=== PATIENT | female | born 1945 | race Caucasian/White ===

== ENCOUNTER 2017-01-21 09:00 | Emergency (ER) | payer MEDICARE, OTHER ==
--- NOTE | 2017-01-21 09:40 | EDM.PDOC ---
ED HPI GENERAL MEDICAL PROBLEM - General Chief Complaint: Neuro Symptoms/Deficits Stated Complaint: POSSIBLE STROKE Time Seen by Provider: 01/21/17 09:20 Source of Information: Reports: Patient, Family History Limitations: Reports: No Limitations - History of Present Illness INITIAL COMMENTS - FREE TEXT/NARRATIVE: Quyen comes to [facility] ED with a 10 day hx of some R facial drooping, biting her R cheek when chewing food, slurred speech, and concerns for a possible stroke. There is no headache, dizziness, lt headiness, visual disturbance, loss of coordination or impaired ambulation, or glenis weakness. She called her PCP this am who suggested a visit to the ED. She has not tried any meds. - Related Data Allergies Allergy/AdvReac Type Severity Reaction Status Date / Time No Known Allergies Allergy Verified 01/21/17 09:24 Home Meds: Home Meds Allopurinol [Zyloprim] 100 mg BID 01/21/17 [History] Calcium Polycarbophil [Fibercon] 625 mg PO DAILY 01/21/17 [History] Cetirizine [ZyrTEC] 10 mg PO DAILY 01/21/17 [History] Cholecalciferol (Vitamin D3) [Vitamin D3] 2,000 unit PO DAILY 01/21/17 [History] Cyanocobalamin (Vitamin B12) [Vitamin B13] 500 mcg PO DAILY 01/21/17 [History] Dexamethasone 2 mg PO Q8H #20 tab 01/21/17 [Rx] Indapamide 1.25 mg PO Q48H 01/21/17 [History] Potassium Chloride [Potassium Chloride] 10 meq DAILY 01/21/17 [History] Ranitidine [Zantac] 150 mg PO 1800 01/21/17 [History] Simvastatin [Zocor] 10 mg PO BEDTIME 01/21/17 [History] Past Medical History Cardiovascular History: Reports: High Cholesterol, Hypertension Gastrointestinal History: Reports: GERD Oncologic (Cancer) History: Reports: Lung ED ROS GENERAL - Review of Systems Review Of Systems: See Below Constitutional: Reports: No Symptoms HEENT: Reports: Other (R facial asymmetry, biting R cheek, slurred speech) Respiratory: Reports: No Symptoms Cardiovascular: Reports: Edema Endocrine: Reports: No Symptoms GI/Abdominal: Reports: No Symptoms : Reports: No Symptoms Musculoskeletal: Reports: No Symptoms Skin: Reports: No Symptoms Neurological: Reports: Trouble Speaking, Other (R facial asymmetry) Psychiatric: Reports: No Symptoms Hematologic/Lymphatic: Reports: No Symptoms Immunologic: Reports: No Symptoms ED EXAM, NEURO - Physical Exam Exam: See Below Exam Limited By: No Limitations General Appearance: Alert, WD/WN, No Apparent Distress, Anxious Eye Exam: Bilateral Eye: Normal Fundi, Normal Inspection, PERRL Ears: Normal External Exam Nose: Normal Inspection Throat/Mouth: Normal Inspection, Normal Teeth, Normal Gums, Normal Oropharynx, Normal Voice, Other (lengthening of R nasolabial fold) Head Exam: Other (lengthening of R nasolabial fold) Neck: Normal Inspection, Supple, Non-Tender, Full Range of Motion Respiratory/Chest: Lungs Clear, Normal Breath Sounds, Chest Non-Tender Cardiovascular: Normal Peripheral Pulses, Regular Rate, Rhythm, No Edema, No Murmur GI/Abdominal: Normal Bowel Sounds, Soft, Non-Tender, No Organomegaly, No Mass Neurological: Alert, Normal Mood/Affect, Normal Dorsiflexion, Normal Plantar Flexion, Normal Gait, Normal Reflexes, No Motor/Sensory Deficits, Oriented x 3, Other (R facial asymmetry with intact movement of R forehead and periorbital mm) Back Exam: Normal Inspection Extremities: Normal Inspection, Normal Range of Motion Psychiatric: Normal Affect, Anxious Skin Exam: Warm, Dry, Intact Course - Vital Signs Text/Narrative:: Subsequent studies included a screening noncontrast Head CT which noted a 16x20 mm lesion in the L frontoparietal area suspicious for a malignancy. A subsequent Brain MRI w contrast noted: Last Recorded V/S: Last Vital Signs Temp 36.7 C 01/21/17 09:03 Pulse 110 H 01/21/17 09:03 Resp 16 01/21/17 12:24 BP 161/81 H 01/21/17 12:24 Pulse Ox 100 01/21/17 12:24 - Orders/Labs/Meds Orders: Active Orders 24 hr Category Date Time Status Brain w wo Cont [MR] Stat Exams 01/21/17 10:01 Taken Chest 2V [CR] Stat Exams 01/21/17 10:01 Taken C Reactive Protein [C-REACTIVE PROTEIN] [CHEM] Stat Lab 01/21/17 09:38 Results COMPREHENSIVE METABOLIC PN,CMP [CHEM] Stat Lab 01/21/17 09:38 Results EKG 12 Lead [EK] Routine Ther 01/21/17 09:33 Ordered Labs: Laboratory Tests 01/21/17 01/21/17 01/21/17 Range/Units 09:38 09:38 09:38 WBC 5.4 (4.5-12.0) X10-3/uL RBC 4.29 (3.23-5.20) x10(6)uL Hgb 13.8 (11.5-15.5) g/dL Hct 39.6 (30.0-51.3) % MCV 92.2 (80-96) fL MCH 32.1 (27.7-33.6) pg MCHC 34.8 (32.2-35.4) g/dL RDW 12.9 (11.5-15.5) % Plt Count 189 (125-369) X10(3)uL MPV 7.9 (7.4-10.4) fL Neut % (Auto) 52.4 (46-82) % Lymph % (Auto) 34.7 (13-37) % Spencer % (Auto) 8.5 (4-12) % Eos % (Auto) 4 (1.0-5.0) % Baso % (Auto) 1 (0-2) % Neut # (Auto) 2.8 (1.6-8.3) # Lymph # (Auto) 1.9 (0.6-5.0) # Spencer # (Auto) 0.5 (0.0-1.3) # Eos # (Auto) 0.2 (0.0-0.8) # Baso # (Auto) 0.0 (0.0-0.2) # ESR 11 (0-20) mm/hr POC Sodium 141 (135-145) mmol/L POC Potassium 3.5 (3.5-5.3) mmol/L POC Chloride 105 (100-110) mmol/L POC Total CO2 22.0 L (23.0-30.0) mmol/L POC BUN 19 H (7-18) mg/dL POC Creatinine 0.8 (0.6-1.3) mg/dL Estimated GFR (MDRD) > 60 (>60) POC Glucose 134 H (80-116) mg/dL Meds: Medications Discontinued Medications Generic Name Dose Route Start Last Admin Trade Name Freq PRN Reason Stop Dose Admin Gadoteridol 20 ml 11/10/17 11:30 01/21/17 12:06 Prohance IV 19 ml . DIRECTED VARINDER Administration Departure - Departure Time of Disposition: 13:05 Disposition: Home, Self-Care 01 Condition: Fair Clinical Impression: Facial paralysis on right side, Brain malignancy - Discharge Information Prescriptions: Dexamethasone 2 mg PO Q8H #20 tab Referrals: Ehsan Morales MD [Primary Care Provider] - Forms: ED Department Discharge - Problem List & Annotations (1) Facial paralysis on right side SNOMED Code(s): 071148824 Code(s): G51.0 - [place]SY Status: Acute Current Visit: Yes Annotation/Comment:: R facial paralysis likely related to metastatis lesion in L frontoparietal area. I dispensed Dexamthasone 2 mg tid for brain swelling. She will follow up with Oncology in [facility]. (2) Brain malignancy SNOMED Code(s): 496854606 Code(s): C71.9 - MALIGNANT NEOPLASM OF BRAIN, UNSPECIFIED Status: Acute Current Visit: Yes Annotation/Comment:: MRI report of brain mets. Reports will be sent to Oncology in [place] on her behalf, including an appt for follow up next week. I dispensed Dexamethasone 2 mg tid for brain swelling to improve facial paralysis. - Problem List Review Problem List Initiated/Reviewed/Updated: Yes - My Orders Last 24 Hours: My Active Orders 01/21/17 09:33 EKG 12 Lead [EK] Routine 01/21/17 09:38 C Reactive Protein [C-REACTIVE PROTEIN] [CHEM] Stat COMPREHENSIVE METABOLIC PN,CMP [CHEM] Stat 01/21/17 10:01 Brain w wo Cont [MR] Stat Chest 2V [CR] Stat - Assessment/Plan Last 24 Hours: My Active Orders 01/21/17 09:33 EKG 12 Lead [EK] Routine 01/21/17 09:38 C Reactive Protein [C-REACTIVE PROTEIN] [CHEM] Stat COMPREHENSIVE METABOLIC PN,CMP [CHEM] Stat 01/21/17 10:01 Brain w wo Cont [MR] Stat Chest 2V [CR] Stat Plan: Follow up with Oncology-[facility] next week.
--- NOTE | 2017-01-21 10:35 | CT ---
INDICATION: Right facial droop, slurring of words, x10 days. No vision changes. CT HEAD WITHOUT CONTRAST: Serial contiguous 2.5 and 5-mm sections were obtained through the brain 01/21/2017. No previous studies were available. The patient also has a history of lung CA. Total Exam DLP = 949.36 mGy-cm. No shift of midline structures or ventricular abnormalities were identified. Tiny low-density abnormality in the left basal ganglia - external capsule - suggests lacunar infarct. Likewise, an even tinier low-density area is noted in the anterior limb of the internal capsule on the left, which could represent a tiny lacunar infarct also. In the left frontoparietal area, there is a 16 x 20 mm, somewhat rounded to oval shaped area of decreased density with some surrounding brain edema. The possibility of a metastatic deposit would be a consideration in this patient with history of lung CA. MRI is recommended for further evaluation without and with contrast. There are minimal calcifications in the internal carotid arteries. No other definite abnormal areas of density were identified. Paranasal sinuses and mastoid air cells appear to be well aerated. No definite cranial abnormality was identified. IMPRESSION: 1. Suspicious mass density in the left frontoparietal area, measuring a maximum of 20 mm. Metastatic deposit could be present versus a primary lesion. MRI is recommended for further evaluation. 2. Minimal lacunar infarcts on the left. 3. Minimal internal carotid artery calcifications. Report was given in person to Dr. Holguin at 0953 hours, 01/21/2017. [facility]
[2017-01-21] MEDS ORDERED: Gadoteridol 279.3 MG/ML 20 ML SDV IV SCH (11:30)
--- NOTE | 2017-01-21 13:25 | CR ---
INDICATION: History of adenocarcinoma of the lung. CHEST: PA and lateral views of the chest were obtained and compared with CT scan from 11/17/2016. An active infiltrate or effusion or definite recurrent neoplasm or metastatic disease process could not be identified. Findings compatible with COPD are noted. The aorta is calcified minimally in the arch area. Overlying snaps are noted. Slightly diminished bone density raises question of osteoporosis, which should be correlated clinically. IMPRESSION: No acute process. No definite evidence of metastatic disease. Report was given in person to Dr. Holguin at approximately 1225 hours, 01/21/2017. [facility]
== END 2017-01-21 13:21 | disposition home or self-care (01) ==
LOC: FB.ED 09:00
DX: G51.0 Bell's palsy (principal); C71.9 Malignant neoplasm of brain, unspecified; I10 Essential (primary) hypertension; Z79.899 Other long term (current) drug therapy
CPT/HCPCS: 36415; 70450; 70553; 71020; 80047; 80053; 85025; 85651; 86140; 93005; 93010; 99285

== ENCOUNTER 2018-10-09 11:11 | Inpatient (IN) | payer MEDICARE, OTHER ==
--- NOTE | 2018-10-09 11:55 | EDM.PDOC ---
ED HPI GENERAL MEDICAL PROBLEM - General Chief Complaint: General Stated Complaint: FALL Time Seen by Provider: 10/09/18 11:11 Source of Information: Reports: Patient, EMS, Family (Daughter) History Limitations: Reports: Altered Mental Status - History of Present Illness INITIAL COMMENTS - FREE TEXT/NARRATIVE: 72 y.o.w f with a H/O Lung CA Dx'd at age 68, was on RAD Tx was Dx'd last year with a metastatic brain mass left frontal lobe. Pt fell at 2 am, unable to get up. She was able to move herself, while on the floor, to the phone in order to call her daughter this am. Ip was independent till yesterday. Last time seen nl was yesterday 10/08/2018. Pt has a h/o word finding difficulties since her RAD Therapy. Pt is not able to move the right side of her body since her fall at 2 am. Pt is not on Coumadin. No Trauma to head. Mech of fall is not known at this time. Pt is a poor historian, HPI was given by her daughter. As per Daughter, pt is DNR/DNI. BP 128/78 RR 23 Pulse 102 Pulse xo 100% on Temp 35.6 Onset Date: 10/09/18 Onset Time: 02:00 Duration: Hour(s): Location: Reports: Head Quality: Reports: Dull Severity: Moderate Improves with: Reports: Rest Worsens with: Reports: Movement Context: Reports: Other (H/F) Associated Symptoms: Reports: Shortness of Breath, Weakness (right sided) - Related Data Allergies Allergy/AdvReac Type Severity Reaction Status Date / Time No Known Allergies Allergy Verified 10/09/18 11:40 Home Meds: Home Meds Allopurinol [Zyloprim] 200 mg PO DAILY 01/21/17 [History] Cetirizine [ZyrTEC] 10 mg PO DAILY 01/21/17 [History] Cholecalciferol (Vitamin D3) [Vitamin D3] 2,000 unit PO DAILY 01/21/17 [History] Cyanocobalamin (Vitamin B12) [Vitamin B12] 500 mcg PO DAILY 01/21/17 [History] Ranitidine [Zantac] 150 mg PO 1800 01/21/17 [History] Simvastatin [Zocor] 10 mg PO BEDTIME 01/21/17 [History] L Gasseri/B Bifidum/B Longum [[employer]ren[employer] Capsule] 1 tab PO DAILY [History] Wheat Dextrin [Benefiber] 4 gm PO DAILY cont 10/11/17 [Rx] amLODIPine [Norvasc] 2.5 mg PO DAILY 10/11/17 [History] Indapamide 1.25 mg PO Q48H 10/09/18 [History] Losartan [Cozaar] 50 mg PO DAILY 10/09/18 [History] Potassium Chloride 10 meq PO DAILY 10/09/18 [History] dexAMETHasone [Dexamethasone] 2 mg PO DAILY 10/09/18 [History] levETIRAcetam [Keppra] 1,000 mg PO BID 10/09/18 [History] Past Medical History HEENT History: Reports: Cataract Cardiovascular History: Reports: High Cholesterol, Hypertension Other Respiratory History: hx lung CA Gastrointestinal History: Reports: GERD Genitourinary History: Reports: Urinary Incontinence [employer] History: Reports: None, Musculoskeletal History: Reports: Arthritis, Gout Neurological History: Reports: Other (See Below) Other Neuro History: brain surgery 1 year ago Psychiatric History: Reports: Dementia Endocrine/Metabolic History: Reports: Obesity/BMI 30+, Vitamin D Deficiency Oncologic (Cancer) History: Reports: Lung - Infectious Disease History Infectious Disease History: Reports: Chicken Pox, Measles, Mumps - Past Surgical History Respiratory Surgical History: Reports: Other (See Below) Other Respiratory Surgeries/Procedures: L upper lobectomy for lung CA. GI Surgical History: Reports: Colonoscopy, EGD Endocrine Surgical History: Reports: None Oncologic Surgical History: Reports: Lobectomy Other Oncologic Surgeries/Procedures: L upper lobe lobectomy Social & Family History - Family History Family Medical History: Noncontributory - Caffeine Use Caffeine Use: Reports: Coffee Other Caffeine Use: 2 cups coffe daily and 12ounce soda daily ED ROS GENERAL - Review of Systems Review Of Systems: Unable To Obtain ED EXAM, GENERAL - Physical Exam Exam: See Below Exam Limited By: Altered Mental Status General Appearance: Alert, Mild Distress, Obese Eye Exam: Bilateral Eye: Normal Inspection Ears: Normal External Exam Ear Exam: Bilateral Ear: Auricle Normal Nose: Normal Inspection, Normal Mucosa, No Blood Throat/Mouth: Normal Inspection, Normal Lips, Normal Voice, No Airway Compromise Head: Atraumatic, Normocephalic Neck: Normal Inspection, Supple, Non-Tender, Full Range of Motion Respiratory/Chest: No Respiratory Distress, Rhonchi Cardiovascular: Normal Peripheral Pulses, Regular Rate, Rhythm, No Edema, No Gallop Peripheral Pulses: 2+: Radial (L) GI/Abdominal: Normal Bowel Sounds, Soft, Non-Tender, No Abnormal Bruit (Female) Exam: Deferred Rectal (Female) Exam: Deferred Back Exam: Normal Inspection, Full Range of Motion Extremities: No Pedal Edema, Normal Capillary Refill, Other (nl passive ROM rigt extremities) Neurological: Alert, Slow to Respond, Memory Loss Remote Events, Memory Loss Recent Events, Abnormal Gait (unable to ambulate due to right sided weakness), Sensory/Motor Deficit (falaccid r extremities) Psychiatric: Normal Affect, Normal Mood Skin Exam: Warm, Dry, Intact, Normal Color, No Rash Lymphatic: No Adenopathy EKG INTERPRETATION EKG Date: 10/09/18 Time: 12:55 Rhythm: NSR Rate (Beats/Min): 106 [place]: Normal P-Wave: Present QRS: Normal ST-T: Normal QT: Normal Comparison: NA - No Prior EKG Course - Vital Signs Text/Narrative:: 72 y.o.w f with a H/O Lung CA Dx'd at age 68, was on RAD Tx was Dx'd last year with a metastatic brain mass left frontal lobe. Pt fell at 2 am, unable to get up. She was able to move herself, while on the floor, to the phone in order to call her daughter this am. Ip was independent till yesterday. Last time seen nl was yesterday 10/08/2018. Pt has a h/o word finding difficulties since her RAD Therapy. Pt is not able to move the right side of her body since her fall at 2 am. Pt is not on Coumadin. No Trauma to head. Mech of fall is not known at this time. Pt is a poor historian, HPI was given by her daughter. As per Daughter, pt is DNR/DNI. BP 128/78 RR 23 Pulse 102 Pulse xo 100% on Temp 35.6 PE: Morbid obese w f with metastatic Brain CA, right sided weakness. Imaging: CT head 3 cm mass left fore head, official report is pending< CT neck and CT Chest are pending Labs: UA po for UTI, Lacticacid 1.6 MCV 102 K 2.9 Impression: Hypokalemia, Right Hemiparesis, H/O Lung CA with metastasis to brain, UTI, DNR/DNI Tx: Potassium, NS Levofloxacin Reexam: Pt was stable in the ED 11.45am Consultation: Dr. Domingo, Hospitalist: Accepted pt for admission. Polan: Admit to [facility] Last Recorded V/S: Last Vital Signs Temp 37.1 C 10/09/18 15:02 Pulse 99 10/09/18 15:02 Resp 24 H 10/09/18 15:02 BP 160/80 H 10/09/18 15:02 Pulse Ox 94 L 10/09/18 15:02 - Orders/Labs/Meds Orders: Active Orders 24 hr Category Date Time Status Patient Status [ADT] Routine ADT 10/09/18 14:17 Active Cardiac Monitoring [RC] INTERMITTENT Care 10/09/18 14:19 Inactive EKG Documentation Completion [RC] ASDIRECTED Care 10/09/18 12:40 Active Lennon Catheter Insertion [Insert Urinary Catheter] [OM. Care 10/09/18 14:00 Ordered PC] Q24H Lennon Catheter Insertion [Insert Urinary Catheter] [OM. Care 10/09/18 14:00 Ordered PC] Q24H Oxygen Therapy [RC] PRN Care 10/09/18 14:17 Active RT Aerosol Therapy [RC] ASDIRECTED Care 10/09/18 13:37 Active Up With Assistance [RC] ASDIRECTED Care 10/09/18 14:16 Active Urinary Catheter Assessment [RC] QSHIFT Care 10/09/18 13:53 Active Urinary Catheter Assessment [RC] QSHIFT Care 10/09/18 13:55 Inactive VTE/DVT Education [RC] Per Unit Routine Care 10/09/18 14:17 Active Vital Signs [RC] Q4H Care 10/09/18 14:17 Active Cervical Spine wo Cont [CT] Stat Exams 10/09/18 11:31 Taken Chest wo Cont [CT] Stat Exams 10/09/18 11:31 Taken Head wo Cont [CT] Stat Exams 10/09/18 11:58 Taken CULTURE URINE [RM] Stat Lab 10/09/18 13:45 Received Sodium Chloride 0.9% [Saline Flush] Med 10/09/18 14:16 Active 10 ml FLUSH ASDIRECTED PRN Saline Lock Insert [OM.PC] Routine Oth 10/09/18 14:16 Ordered Resuscitation Status Routine Resus Stat 10/09/18 14:16 Ordered EKG 12 Lead [EK] Routine Ther 10/09/18 12:40 Ordered Medication Orders Allopurinol (Zyloprim) 200 mg PO DAILY [facility] Amlodipine Besylate (Norvasc) 2.5 mg PO DAILY [facility] Indapamide (Indapamide) 1.25 mg PO Q48H [facility] Levetiracetam (Keppra) 1,000 mg PO BID [facility] Losartan Potassium (Cozaar) 50 mg PO DAILY [facility] Non-Formulary Medication (Dexamethasone [Dexamethasone]) 2 mg PO DAILY [facility] Potassium Chloride (Klor-Con 10) 40 meq PO DAILY [facility] Sodium Chloride (Saline Flush) 10 ml FLUSH ASDIRECTED PRN PRN Reason: Keep Vein Open Labs: Laboratory Tests 10/09/18 10/09/18 10/09/18 Range/Units 12:20 12:20 12:20 WBC 7.5 (4.5-12.0) X10-3/uL RBC 3.54 (3.23-5.20) x10(6)uL Hgb 12.7 (11.5-15.5) g/dL Hct 36.2 (30.0-51.3) % MCV 102.2 H (80-96) fL MCH 35.8 H (27.7-33.6) pg MCHC 35.0 (32.2-35.4) g/dL RDW 13.6 (11.5-15.5) % Plt Count 156 (125-369) X10(3)uL MPV 7.3 L (7.4-10.4) fL Neut % (Auto) 77.7 (46-82) % Lymph % (Auto) 14.6 (13-37) % [place] % (Auto) 6.9 (4-12) % Eos % (Auto) 1 (1.0-5.0) % Baso % (Auto) 0 (0-2) % Neut # (Auto) 5.9 (1.6-8.3) # Lymph # (Auto) 1.1 (0.6-5.0) # [place] # (Auto) 0.5 (0.0-1.3) # Eos # (Auto) 0.0 (0.0-0.8) # Baso # (Auto) 0.0 (0.0-0.2) # PT 9.9 (8.7-11.1) INR 1.02 (0.89-1.13) Sodium 139 (135-145) mmol/L Potassium 2.9 L (3.5-5.3) mmol/L Chloride 101 D (100-110) mmol/L Carbon Dioxide 27 (21-32) mmol/L BUN 12 (7-18) mg/dL Creatinine 1.0 (0.55-1.02) mg/dL Est Cr Clr Drug Dosing 48.00 mL/min Estimated GFR (MDRD) 54 L (>60) BUN/Creatinine Ratio 12.0 (9-20) Glucose 95 (80-116) mg/dL Lactic Acid (0.4-2.2) mmol/L Calcium 9.6 (8.6-10.2) mg/dL Magnesium (1.8-2.5) mg/dL Creatine Kinase (60-160) IU/L NT-Pro-B Natriuret Pep (<=125) pg/mL Urine Color (YELLOW) Urine Appearance (CLEAR) Urine pH (5.0-6.5) Ur Specific [place] (1.010-1.025) Urine Protein (NEGATIVE) mg/dL Urine Glucose (UA) (NORMAL) mg/dL Urine Ketones (NEGATIVE) mg/dL Urine Occult Blood (NEGATIVE) Urine Nitrite (NEGATIVE) Urine Bilirubin (NEGATIVE) Urine Urobilinogen (NEGATIVE) mg/dL Ur Leukocyte Esterase (NEGATIVE) Urine WBC (0-5) Ur Squamous Epith Cells (NS,R,O) Urine Bacteria (NS) 10/09/18 10/09/18 10/09/18 Range/Units 12:20 12:20 12:20 WBC (4.5-12.0) X10-3/uL RBC (3.23-5.20) x10(6)uL Hgb (11.5-15.5) g/dL Hct (30.0-51.3) % MCV (80-96) fL MCH (27.7-33.6) pg MCHC (32.2-35.4) g/dL RDW (11.5-15.5) % Plt Count (125-369) X10(3)uL MPV (7.4-10.4) fL Neut % (Auto) (46-82) % Lymph % (Auto) (13-37) % [place] % (Auto) (4-12) % Eos % (Auto) (1.0-5.0) % Baso % (Auto) (0-2) % Neut # (Auto) (1.6-8.3) # Lymph # (Auto) (0.6-5.0) # [place] # (Auto) (0.0-1.3) # Eos # (Auto) (0.0-0.8) # Baso # (Auto) (0.0-0.2) # PT (8.7-11.1) INR (0.89-1.13) Sodium (135-145) mmol/L Potassium (3.5-5.3) mmol/L Chloride (100-110) mmol/L Carbon Dioxide (21-32) mmol/L BUN (7-18) mg/dL Creatinine (0.55-1.02) mg/dL Est Cr Clr Drug Dosing mL/min Estimated GFR (MDRD) (>60) BUN/Creatinine Ratio (9-20) Glucose (80-116) mg/dL Lactic Acid 1.6 (0.4-2.2) mmol/L Calcium (8.6-10.2) mg/dL Magnesium (1.8-2.5) mg/dL Creatine Kinase 126 (60-160) IU/L NT-Pro-B Natriuret Pep 90 (<=125) pg/mL Urine Color (YELLOW) Urine Appearance (CLEAR) Urine pH (5.0-6.5) Ur Specific [place] (1.010-1.025) Urine Protein (NEGATIVE) mg/dL Urine Glucose (UA) (NORMAL) mg/dL Urine Ketones (NEGATIVE) mg/dL Urine Occult Blood (NEGATIVE) Urine Nitrite (NEGATIVE) Urine Bilirubin (NEGATIVE) Urine Urobilinogen (NEGATIVE) mg/dL Ur Leukocyte Esterase (NEGATIVE) Urine WBC (0-5) Ur Squamous Epith Cells (NS,R,O) Urine Bacteria (NS) 10/09/18 10/09/18 Range/Units 12:20 13:45 WBC (4.5-12.0) X10-3/uL RBC (3.23-5.20) x10(6)uL Hgb (11.5-15.5) g/dL Hct (30.0-51.3) % MCV (80-96) fL MCH (27.7-33.6) pg MCHC (32.2-35.4) g/dL RDW (11.5-15.5) % Plt Count (125-369) X10(3)uL MPV (7.4-10.4) fL Neut % (Auto) (46-82) % Lymph % (Auto) (13-37) % [place] % (Auto) (4-12) % Eos % (Auto) (1.0-5.0) % Baso % (Auto) (0-2) % Neut # (Auto) (1.6-8.3) # Lymph # (Auto) (0.6-5.0) # [place] # (Auto) (0.0-1.3) # Eos # (Auto) (0.0-0.8) # Baso # (Auto) (0.0-0.2) # PT (8.7-11.1) INR (0.89-1.13) Sodium (135-145) mmol/L Potassium (3.5-5.3) mmol/L Chloride (100-110) mmol/L Carbon Dioxide (21-32) mmol/L BUN (7-18) mg/dL Creatinine (0.55-1.02) mg/dL Est Cr Clr Drug Dosing mL/min Estimated GFR (MDRD) (>60) BUN/Creatinine Ratio (9-20) Glucose (80-116) mg/dL Lactic Acid (0.4-2.2) mmol/L Calcium (8.6-10.2) mg/dL Magnesium 1.4 L (1.8-2.5) mg/dL Creatine Kinase (60-160) IU/L NT-Pro-B Natriuret Pep (<=125) pg/mL Urine Color Yellow (YELLOW) Urine Appearance Cloudy (CLEAR) Urine pH 6.5 (5.0-6.5) Ur Specific [place] 1.005 L (1.010-1.025) Urine Protein Negative (NEGATIVE) mg/dL Urine Glucose (UA) Normal (NORMAL) mg/dL Urine Ketones Negative (NEGATIVE) mg/dL Urine Occult Blood Negative (NEGATIVE) Urine Nitrite Positive H (NEGATIVE) Urine Bilirubin Negative (NEGATIVE) Urine Urobilinogen Normal (NEGATIVE) mg/dL Ur Leukocyte Esterase Large H (NEGATIVE) Urine WBC 50-75 H (0-5) Ur Squamous Epith Cells Few H (NS,R,O) Urine Bacteria Many H (NS) Meds: Medications Generic Name Dose Route Start Last Admin Trade Name Dali PRN Reason Stop Dose Admin Allopurinol 200 mg 10/10/18 09:00 Zyloprim PO DAILY [facility] Amlodipine Besylate 2.5 mg 10/10/18 09:00 Norvasc PO DAILY [facility] Indapamide 1.25 mg 10/09/18 15:45 Indapamide PO Q48H [facility] Levetiracetam 1,000 mg 10/09/18 21:00 Keppra PO BID [facility] Losartan Potassium 50 mg 10/10/18 09:00 Cozaar PO DAILY [facility] Non-Formulary Medication 2 mg 10/10/18 09:00 Dexamethasone [Dexamethasone] PO DAILY [facility] Potassium Chloride 40 meq 10/10/18 09:00 Klor-Con 10 PO DAILY [facility] Sodium Chloride 10 ml 10/09/18 14:16 Saline Flush FLUSH ASDIRECTED PRN Keep Vein Open Discontinued Medications Generic Name Dose Route Start Last Admin Trade Name Dali PRN Reason Stop Dose Admin Albuterol/Ipratropium 3 ml 10/09/18 13:37 10/09/18 13:55 Duoneb 3.0-0.5 Mg/3 Ml NEB 10/09/18 13:38 3 ml ONETIME ONE Administration Morphine Sulfate 4 mg 10/09/18 13:54 10/09/18 14:16 Morphine IVPUSH 10/09/18 13:55 Not Given ONETIME ONE Potassium Chloride 40 meq 10/09/18 12:40 10/09/18 12:45 Klor-Con M20 PO 10/09/18 12:41 40 meq ONETIME ONE Administration Potassium Chloride 10 meq 10/10/18 09:00 Klor-Con 10 PO DAILY [facility] Departure - Departure Time of Disposition: 15:51 Disposition: Admitted As Inpatient 64 Condition: Fair Clinical Impression: Brain mass CVA (cerebral vascular accident) Qualifiers: CVA mechanism: unspecified Qualified Code(s): I63.9 - Cerebral infarction, unspecified - Discharge Information - My Orders Last 24 Hours: My Active Orders 10/09/18 11:31 Cervical Spine wo Cont [CT] Stat Chest wo Cont [CT] Stat 10/09/18 11:58 Head wo Cont [CT] Stat 10/09/18 12:40 EKG Documentation Completion [RC] ASDIRECTED EKG 12 Lead [EK] Routine 10/09/18 13:37 RT Aerosol Therapy [RC] ASDIRECTED 10/09/18 13:45 CULTURE URINE [RM] Stat 10/09/18 13:53 Urinary Catheter Assessment [RC] QSHIFT 10/09/18 13:55 Urinary Catheter Assessment [RC] QSDCFT 10/09/18 14:00 Lennon Catheter Insertion [Insert Urinary Catheter] [OM.PC] Q24H Lennon Catheter Insertion [Insert Urinary Catheter] [OM.PC] Q24H 10/09/18 14:16 Up With Assistance [RC] ASDIRECTED Sodium Chloride 0.9% [Saline Flush] 10 ml FLUSH ASDIRECTED PRN Saline Lock Insert [OM.PC] Routine Resuscitation Status Routine 10/09/18 14:17 Patient Status [ADT] Routine Oxygen Therapy [RC] PRN VTE/DVT Education [RC] Per Unit Routine Vital Signs [RC] Q4H 10/09/18 14:19 Cardiac Monitoring [RC] INTERMITTENT - Assessment/Plan Last 24 Hours: My Active Orders 10/09/18 11:31 Cervical Spine wo Cont [CT] Stat Chest wo Cont [CT] Stat 10/09/18 11:58 Head wo Cont [CT] Stat 10/09/18 12:40 EKG Documentation Completion [RC] ASDIRECTED EKG 12 Lead [EK] Routine 10/09/18 13:37 RT Aerosol Therapy [RC] ASDIRECTED 10/09/18 13:45 CULTURE URINE [RM] Stat 10/09/18 13:53 Urinary Catheter Assessment [RC] QSHIFT 10/09/18 13:55 Urinary Catheter Assessment [RC] QSDCFT 10/09/18 14:00 Lennon Catheter Insertion [Insert Urinary Catheter] [OM.PC] Q24H Lennon Catheter Insertion [Insert Urinary Catheter] [OM.PC] Q24H 10/09/18 14:16 Up With Assistance [RC] ASDIRECTED Sodium Chloride 0.9% [Saline Flush] 10 ml FLUSH ASDIRECTED PRN Saline Lock Insert [OM.PC] Routine Resuscitation Status Routine 10/09/18 14:17 Patient Status [ADT] Routine Oxygen Therapy [RC] PRN VTE/DVT Education [RC] Per Unit Routine Vital Signs [RC] Q4H 10/09/18 14:19 Cardiac Monitoring [RC] INTERMITTENT
[2018-10-09] MEDS ORDERED: Potassium Chloride 20 MEQ Tab.ER PO ONE (12:40)
[2018-10-09] MEDS ORDERED: Albuterol/Ipratropium 3.0-0.5 MG/3 ML Neb Soln NEB ONE (13:37)
[2018-10-09] MEDS ORDERED: Morphine 4 MG/ML Syringe IVPUSH ONE (13:54)
[2018-10-09] MEDS ORDERED: Sodium Chloride 0.9% 10 ML Syringe FLUSH PRN (14:16)
[2018-10-09] MEDS ORDERED: Indapamide 2.5 MG Tab PO SCH (15:45)
[2018-10-09] MEDS ORDERED: Levofloxacin/Dextrose 5%-Water 500 MG in Premix Bag 1 BAG IV SCH (16:00)
[2018-10-09] MEDS ORDERED: Dexamethasone 4 MG Tab PO SCH (21:00)
[2018-10-09] MEDS: levETIRAcetam 500 MG Tab PO SCH (23:00)
--- NOTE | 2018-10-09 23:39 | HP ---
ADMISSION DATE: 10/09/2018 HISTORY OF PRESENT ILLNESS: Ms. Quinn is a 72-year-old woman from [place], [place] with a history of lung cancer metastatic to the brain. She had 3 radiation treatments to the brain with minimal discernible benefit from the last 1. She has been maintained on dexamethasone 2 mg daily and has decided to forego any chemotherapy, additional radiation therapy or other invasive treatments. According to the patient and her daughter, she apparently got out of bed at around 0200 hours in the morning to go to the bathroom. She fell, was able to pull herself to her phone and call her son-in-law's number. This was at about 1000 hours when they arrived, found her on the floor and brought her by ambulance to [facility] where she was evaluated in the ER and found to have evidence of dense left CVA with right hemiplegia. She is now admitted to the hospital. The patient has difficulty with history. Since her brain mets, she has had word- finding difficulty. This is worse now according to her daughter. The patient also states she had been able to use her right hand for feeding herself with a fork, etc., and she is now unable to do that. She denies any pain, headache, dyspnea, palpitations or injuries in the fall. PAST MEDICAL HISTORY: Significant for the lung cancer and she is also with brain metastases. She also has a history of hypertension, chronic kidney disease, hyperlipidemia, obesity, stress incontinence. MEDICATIONS: 1. Potassium 10 mEq daily. 2. Losartan 50 mg daily. 3. Keppra 1000 mg b.i.d. 4. Indapamide 2.5 mg one half tablet every 48 hours. 5. Dexamethasone 2 mg daily. 6. Amlodipine 2.5 mg daily. 7. Allopurinol 200 mg daily. 8. Benefiber 4 g daily. 9. Simvastatin 10 mg at bedtime. 10.Ranitidine 150 mg q.p.m. 11.Exablox 1 daily. 12.Vitamin B12, 500 mcg daily. 13.Vitamin D 2000 units daily. 14.Zyrtec 10 mg daily. ALLERGIES: None. HABITS: Nonsmoker and nondrinker. FAMILY AND SOCIAL HISTORY: The patient is . She lives by herself in [place]. Her daughter, who accompanies her today lives in [place] and she is a former general foundry worker. REVIEW OF SYSTEMS: She does have a history of a seizure disorder and maintained on Keppra. No recent seizures as of known. No headaches. No recent change in hearing or vision. No cough or dyspnea. No chest pain or palpitations. No abdominal pain. She states her bowels and bladder work fine. No joint inflammation. She does get occasional swelling of her lower extremities. PHYSICAL EXAMINATION: GENERAL: She is alert. She has great word finding difficulty with communication. She has a somewhat simpson face, steroid related. LUNGS: Clear bilaterally. HEART: Regular without murmur or gallop. Carotids are brisk without bruits. ABDOMEN: Obese, soft, and nontender. No masses or organomegaly. EXTREMITIES: Showed no edema. NEUROLOGIC: Exam reveals word- finding difficulty. She cannot answer appropriately in 1 or 2 word answers. 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 She is able to lift her heel off the bed with great difficulty. Left upper and lower extremities appear intact. DIAGNOSTIC STUDIES: CT of the head shows extensive edema to the left parietal area. Hemoglobin 12.7, potassium 2.9, and creatinine 1.0. Urinalysis; 50 to 75 white cells and positive nitrite. ASSESSMENT: A 72-year-old woman with: 1. Metastatic brain cancer, now with large left parietal lesion resulting in functional right-sided stroke. 2. Chronic essential hypertension. 3. Hyperlipidemia. 4. Seizure disorder from brain metastases. 5. Hypokalemia. PLAN: I have discussed comfort measures. They have decided no further invasive treatments and we will ask for hospice consult. We will manage her blood pressure, increase her dexamethasone and replace her hypokalemia. We will provide palliative care measures for her underlying problems as well. /[id number] BRENT/AJL
--- NOTE | 2018-10-10 08:31 | PN ---
DATE SEEN: 10/10/2018 HISTORY: Quyen is a 72-year-old woman with metastatic lung cancer to the brain. She presented to the ER yesterday with symptoms of a stroke with right hemiplegia. Her previous word-finding difficulty was also worsened. She had completed 3 radiation treatments for her brain metastases and declined further invasive or chemotherapy treatment. She is examined in her bed this morning; is comfortable and a fair historian, but has difficulty with communication. She answers yes and no answers promptly and apparently accurately. PHYSICAL EXAMINATION: VITAL SIGNS: Blood pressure 119/71, pulse 94 and regular, respirations normal, O2 saturation 94% on room air, and temperature 99.3. SKIN: Shows vascular ectasia over the cheeks and a simpson face. LUNGS: Clear. HEART: Regular without murmur or gallop. ABDOMEN: Obese, soft, nontender. No masses. No organomegaly. EXTREMITIES: Show no edema. NEUROLOGIC: Reveals her to be essentially completely flaccid on the right upper extremity and antigravity strength at the knee on the right, but she cannot get her ankle off the bed. LABORATORY DATA: Laboratory yesterday showed a hemoglobin of 12.7, potassium 2.9, creatinine 1.0. Urinalysis 50 to 75 white cells, positive nitrite. Urine culture showed Gram-negative rods. ASSESSMENT: 1. Left cerebrovascular accident with right hemiplegia. 2. Metastatic lung cancer to the brain. 3. Urinary tract infection. 4. Seizure disorder secondary to brain metastases. 5. Hypertension. 6. History of gout. 7. Reactive airways disease. 8. Significant hypokalemia. PLAN: Potassium is being replaced orally. I will increase her dexamethasone to 4 mg b.i.d. due to her brain swelling. We will also start her on Macrobid for the urinary tract infection and provide palliative care measures. I have discussed with the patient and her daughter hospice and will have seek a hospice consult today. Further placement to be determined upon discharge. /[id number] BRENT/ELIF
[2018-10-10] MEDS: Losartan 50 MG Tab PO SCH (08:41)
[2018-10-10] MEDS: levETIRAcetam 500 MG Tab PO SCH ×2 (08:42→21:06)
[2018-10-10] MEDS: Indapamide 2.5 MG Tab PO SCH (08:42)
[2018-10-10] MEDS: Dexamethasone 4 MG Tab PO SCH ×2 (08:42→21:06)
[2018-10-10] MEDS: Nitrofurantoin Monohydrate/Macrocrystalline 100 MG Cap PO SCH ×2 (08:43→21:06)
[2018-10-10] MEDS: Allopurinol 100 MG Tab PO SCH (08:43)
[2018-10-10] MEDS: Potassium Chloride 20 MEQ Tab.ER PO SCH (08:43)
[2018-10-10] MEDS: amLODIPine 2.5 MG Tab PO SCH (08:43)
[2018-10-10] MEDS ORDERED: Potassium Chloride 10 MEQ Tab.ER PO SCH (09:00)
[2018-10-10] MEDS ORDERED: Dexamethasone 4 MG Tab PO SCH (09:00)
[2018-10-11] MEDS: Losartan 50 MG Tab PO SCH (08:12)
[2018-10-11] MEDS: Indapamide 2.5 MG Tab PO SCH (08:12)
[2018-10-11] MEDS: Nitrofurantoin Monohydrate/Macrocrystalline 100 MG Cap PO SCH (08:19)
[2018-10-11] MEDS: Potassium Chloride 20 MEQ Tab.ER PO SCH (08:20)
[2018-10-11] MEDS: Allopurinol 100 MG Tab PO SCH (08:20)
[2018-10-11] MEDS: levETIRAcetam 500 MG Tab PO SCH (08:20)
[2018-10-11] MEDS: amLODIPine 2.5 MG Tab PO SCH (08:21)
[2018-10-11] MEDS: Dexamethasone 4 MG Tab PO SCH (08:21)
[2018-10-11] MEDS ORDERED: Tuberculin, PPD 5 Units/0.1 ML 1 ML MDV IDERM ONE (09:55)
[2018-10-12] MEDS ORDERED: Potassium Chloride 10 MEQ Tab.ER PO SCH (09:00)
== END 2018-10-11 14:20 | DRG 54 ==
LOC: FB.ED 11:11 → FB.MS 14:17
PROVIDERS: ADMIT Family Medicine; ATTEND Family Medicine
DX: I63.9 Cerebral infarction, unspecified (principal); Z85.118 Personal history of other malignant neoplasm of bronchus and lung; C79.31 Secondary malignant neoplasm of brain; E78.00 Pure hypercholesterolemia, unspecified; I63.89 Other cerebral infarction; G81.91 Hemiplegia, unspecified affecting right dominant side; G40.802 Other epilepsy, not intractable, without status epilepticus; N39.0 Urinary tract infection, site not specified; I10 Essential (primary) hypertension; E78.5 Hyperlipidemia, unspecified; E87.6 Hypokalemia; Z66 Do not resuscitate; I69.328 Other speech and language deficits following cerebral infarction; J45.909 Unspecified asthma, uncomplicated; Z79.899 Other long term (current) drug therapy; K21.9 Gastro-esophageal reflux disease without esophagitis; M19.90 Unspecified osteoarthritis, unspecified site; M10.9 Gout, unspecified; F03.90 Unspecified dementia, unspecified severity, without behavioral disturbance, psychotic disturbance, mood disturbance, and anxiety; E66.9 Obesity, unspecified; E55.9 Vitamin D deficiency, unspecified; Z92.3 Personal history of irradiation; Z68.38 Body mass index [BMI] 38.0-38.9, adult; R40.2412 Glasgow coma scale score 13-15, at arrival to emergency department
CPT/HCPCS: 36415; 51702; 70450; 71250; 72125; 80048; 81001; 82550; 83605; 83735; 83880; 85025; 85610; 87086; 87088; 87186; 93005; 94640; 99285; A9270; 85018; 86580; 93010; J7620-GY; J8540

== ENCOUNTER 2019-01-08 10:56 | Inpatient (IN) | payer OTHER ==
[2019-01-08] MEDS ORDERED: Morphine Oral Concentrate 20 MG/ML 30 ML Bottle *PTOM PO PRN (12:17)
[2019-01-08] MEDS ORDERED: LORazepam 2 MG/ML SDV IM PRN (12:18)
[2019-01-08] MEDS ORDERED: Hyoscyamine 0.125 MG Tab.SL PO PRN (12:20)
[2019-01-08] MEDS ORDERED: Docusate Sodium 100 MG Cap PO PRN (12:36)
[2019-01-08] MEDS ORDERED: Bisacodyl 10 MG Supp RECTAL PRN (12:37)
[2019-01-08] MEDS: LORazepam Conc Solution 2 MG/ML 30 ML Bottle PO SCH ×2 (14:32→20:22)
[2019-01-08] MEDS: Ondansetron 4 MG Tab.DIS PO SCH ×2 (14:32→20:22)
--- NOTE | 2019-01-09 00:55 | HP ---
ADMISSION DATE: 01/08/2019 CHIEF COMPLAINT: Admission for respite care. HISTORY OF PRESENT ILLNESS: Ms. Quinn is a 73-year-old resident of [facility] with a history of lung cancer metastatic to the brain. The patient was admitted to [facility] on October 09 with symptoms of a stroke. A CT of the head was done, documenting brain metastases and a left parietal CVA. She was treated with oral steroid and admitted to hospice care at [facility]. She has steadily declined [facility] the [facility]. PAST MEDICAL HISTORY: Other past history includes chronic essential hypertension, history of hypokalemia, and the lung cancer diagnosed back in 2016. Additional past history includes admissions for urinary tract infection. She had a lobectomy for left upper lung cancer in 2016. She has had gout, hyperlipidemia, hypertension, and ovarian cysts. PHYSICAL EXAMINATION: GENERAL: She is examined lying in her exam bed. She does answer questions but is quite drowsy. VITAL SIGNS: Blood pressure 162/88, pulse 88 and regular, temperature 98.2, weight 243 pounds, and O2 saturation 94% on room air. SKIN: Shows no rash. 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 THROAT: Oropharynx: Mouth is dry. LUNGS: Clear anteriorly with easy respirations. HEART: Regular without murmur or gallop. ABDOMEN: Obese. Soft and nontender. EXTREMITIES: Show no edema at the feet and intact dorsalis pedis pulses bilaterally. NEUROLOGIC: She has decorticate posturing of her right upper extremity. LABORATORY: None. ASSESSMENT: 1. Admission for respite care on hospice in a 73-year-old woman with a history of lung cancer metastatic to the brain. 2. Hypertension. PLAN: We will continue her hospice care-managed orders for comfort measures and palliative care and anticipate return [facility] the [facility] following a brief hospitalization. /[id number] BRENT/ELIF
[2019-01-09] MEDS: LORazepam Conc Solution 2 MG/ML 30 ML Bottle PO SCH ×4 (02:02→19:49)
[2019-01-09] MEDS: Ondansetron 4 MG Tab.DIS PO SCH ×4 (02:03→19:49)
[2019-01-10] MEDS: Ondansetron 4 MG Tab.DIS PO SCH ×2 (01:57→07:55)
[2019-01-10] MEDS: LORazepam Conc Solution 2 MG/ML 30 ML Bottle PO SCH ×2 (01:58→08:03)
[2019-01-10] MEDS ORDERED: Potassium Chloride 10 MEQ Tab.ER PO SCH (09:00)
[2019-01-10] MEDS ORDERED: levETIRAcetam 500 MG Tab PO SCH (09:00)
[2019-01-10] MEDS ORDERED: Dexamethasone 4 MG Tab PO SCH (09:00)
--- NOTE | 2019-01-10 13:43 | DISCH ---
DISCHARGE DATE: 01/10/2019 HISTORY: Quyen is a 73-year-old woman with lung cancer metastatic to the brain, who was on hospice. She was admitted for respite care yesterday to [place]. A bed now is being made available for her at [facility] to where she will be discharged to continue under the care of hospice. PHYSICAL EXAMINATION: GENERAL: Showed her to be drowsy, but awakened to voice and answered questions appropriately. VITAL SIGNS: Blood pressure 120/62, pulse 85, respirations normal, she is afebrile. Weight 223 pounds. SKIN: Showed no sign of rash. She did complain of slight pain in the lateral right hip, but no bruising was visible. OROPHARYNX: Mouth is dry. LUNGS: Clear. HEART: Regular without murmur. ABDOMEN: Obese, soft, nontender. EXTREMITIES: Showed no edema. NEUROLOGIC: Revealed equal director cost strength in the upper extremities. Intact strength in the left lower extremity, but weakness to foot dorsiflexion on the right lower extremity. ASSESSMENT: A 73-year-old woman on hospice care for lung cancer metastatic to the brain. PLAN: She is discharged to [facility] for hospice cares and will have follow up per hospice routine. /[id number] BRENT/ELIF
== END 2019-01-10 10:13 | DRG 951 ==
LOC: FB.MS 10:56
PROVIDERS: ADMIT Family Medicine; ATTEND Family Medicine
DX: Z51.5 Encounter for palliative care (principal); C34.90 Malignant neoplasm of unspecified part of unspecified bronchus or lung; C79.31 Secondary malignant neoplasm of brain; I10 Essential (primary) hypertension; E78.5 Hyperlipidemia, unspecified; Z90.2 Acquired absence of lung [part of]
CPT/HCPCS: A9270-GY; Q5005